=== PATIENT | male | born 2000 | race Caucasian/White ===

== ENCOUNTER 2022-03-10 10:20 | Emergency (ER) | payer OTHER, SELFPAY ==
[2022-03-10 10:32] VITALS: BP 134/74; PULSE 78; RESP 18; TEMP 36.6; O2SAT 98; BMI 25.0
[2022-03-10 11:05] LABS: COVID-19 Test Negative (Negative); IDNOW Serial# 08D9AD1C; Influenza A Negative (Negative); Influenza B2 Negative (Negative)
--- NOTE | 2022-03-10 11:15 | ED_ITS ---
HPI - General Adult General Chief complaint: General Medical Stated complaint: covid symptons Time Seen by Provider: 03/10/22 11:15 History of Present Illness HPI narrative: Positive coughing upper respiratory symptoms positive generalized malaise last few days. Patient is vaccinated for COVID. Positive leukocyte. Feels nauseous at times. Related Data Previous Rx's Medication Instructions Recorded ondansetron 4 mg disintegrating 4 mg PO TID PRN nausea and 03/10/22 tablet vomiting 5 days #10 tabs Allergies Allergy/AdvReac Type Severity Reaction Status Date / Time No Known Allergies Allergy Verified 03/10/22 11:16 Review of Systems Review of Systems: Positive coughing congestion upper respiratory symptoms Yes all other systems are reviewed and are negative [facility] Social History Social History Advance Directives: No Advance Directives Information Provided: No Physical Exam ED Vital Signs: Vital Signs - 24 hr 03/10/22 10:32 Temperature 97.8 F Pulse Rate 78 Respiratory Rate 18 Blood Pressure 134/74 Pulse Oximetry 98 Oxygen Delivery Method Room Air BMI result Body Mass Index 25.0 Appearance: Alert. Oriented X3. No acute distress. Eyes: Pupils equal, round and reactive to light. ENT: Pharynx normal. Neck: Normal inspection. Neck supple. No lymph nodes noted. No crepitus CVS: Normal heart rate and rhythm. Pulses normal. Normal S1 and S2 Respiratory: No respiratory distress. Breath sounds normal. No Wheezing. No rales Abdomen: Soft and nontender. No rigidity. No distention. good BS x4 Skin: Skin warm and dry. Normal skin color. Normal skin turgor. Extremities: No lower extremity edema. Neurovascular intact to all extremities. No Lacerations. No Rash Neuro: Oriented X 3. No motor deficit. No sensory deficit. Moving all extermities. No slurred speech Medical Decision Making MDM Narrative Medical decision making narrative: O2 sat 98% on room air no distress. Patient's COVID test negative. Flu test negative. Will discharge patient. Lab Data Lab results reviewed: Yes I reviewed the patient's lab results. Labs: Lab Results 03/10/22 03/10/22 Range/Units 10:41 10:41 COVID-19 (ARLENE) Negative (Negative) COVID-19 Clin Com See Note Influenza Type A (DENI) Negative (Negative) Influenza Type B (DENI) Negative (Negative) Influenza A & B Note See Note Discharge Plan Discharge Clinical Impression: Upper respiratory infection Patient Disposition: Home, Self-Care Instructions: Upper Respiratory Infection (ED) Prescriptions: New ondansetron 4 mg tablet,disintegrating 4 mg PO TID PRN (Reason: nausea and vomiting) 5 Days Qty: 10 0RF Referrals: Alexandru Frederick MD [Primary Care Provider] -
[2022-03-10] MEDS: Acetaminophen 325 MG TABLET 650 MG PO (12:42)
== END 2022-03-10 12:43 | disposition home or self-care (01) ==
PROVIDERS: Emergency Provider Emergency Medicine Emergency Medical Services; PCP Internal Medicine
DX: J06.9 Acute upper respiratory infection, unspecified (principal); R11.0 Nausea; Z20.822 Contact with and (suspected) exposure to COVID-19
CPT/HCPCS: 87502; 87635; 99283